=== PATIENT | male | born 1970 | race Caucasian/White ===

== ENCOUNTER 2020-11-02 09:36 | Observation (INO) | payer BC, OTHER ==
--- NOTE | 2020-11-02 09:42 | ERPHSYRPT ---
- History of Present Illness Time Seen by Provider: 11/02/20 09:42 Source: patient Exam Limitations: no limitations Physician History: This is a 50-year-old overweight white male with a history of hypertension and presents with a left groin abscess that has increased in size over the last 3 to 4 weeks despite Keflex and doxycycline orally. In addition, 2 days ago patient received an injection intramuscularly of Rocephin 2 g. Patient's primary care physician is Dr. Scales. Culture was obtained of this fluid and to this date there is been no growth present. Patient has an appointment to see general surgeon's Dr. Mark/Machelle on 11/06/2020. However, the site has increased in pain and size. Timing/Duration: week(s) Quality: painful Severity: moderate Location: other (Left groin) Possible Causes: no cause identified Associated Symptoms: change in skin texture, swelling/mass/lumps Allergies/Adverse Reactions: iodine Allergy (Verified 11/02/20 09:40) Home Medications: Lisinopril 1 tab PO DAILY 11/02/20 [History] Travel Risk - International Travel Have you traveled outside of the country in past 3 weeks: No - Coronavirus Screening Are you exhibiting any of the following symptoms?: No Close contact with a COVID-19 positive Pt in past 14-21 Days: No - Vaccine Status Have you recieved a Covid-19 vaccination: No - Review of Systems Constitutional: No Symptoms Eyes: No Symptoms Ears, Nose, & Throat: No Symptoms Respiratory: No Symptoms Cardiac: No Symptoms Abdominal/Gastrointestinal: No Symptoms Genitourinary Symptoms: No Symptoms Musculoskeletal: No Symptoms Skin: Cellulitis, Other (Abscess left groin) Neurological: No Symptoms Psychological: No Symptoms Endocrine: No Symptoms Hematologic/Lymphatic: No Symptoms Immunological/Allergic: No Symptoms All Other Systems: Reviewed and Negative - Past Medical History Pertinent Past Medical History: Yes Neurological History: No Pertinent History ENT History: No Pertinent History Cardiac History: Hypertension Respiratory History: No Pertinent History Endocrine Medical History: No Pertinent History Musculoskeletal History: No Pertinent History GI Medical History: No Pertinent History History: No Pertinent History Psycho-Social History: No Pertinent History Male Reproductive Disorders: No Pertinent History - Past Surgical History Past Surgical History: Yes - Nursing Vital Signs Nursing Vital Signs: Initial Vital Signs Temperature 97.7 F 11/02/20 09:41 Pulse Rate 104 H 11/02/20 09:41 Respiratory Rate 18 11/02/20 09:41 Blood Pressure 135/86 11/02/20 09:41 O2 Sat by Pulse Oximetry 95 11/02/20 09:41 Pain Scale Pain Intensity 10 - Physical Exam General Appearance: no apparent distress, alert, anxiety, obese Eye Exam: PERRL/EOMI, eyes nml inspection Ears, Nose, Throat Exam: normal ENT inspection, moist mucous membranes Neck Exam: normal inspection, non-tender, supple, full range of motion Respiratory Exam: normal breath sounds, lungs clear, airway intact, No chest tenderness, No respiratory distress Cardiovascular Exam: regular rate/rhythm, normal heart sounds, normal peripheral pulses Gastrointestinal/Abdomen Exam: soft, normal bowel sounds, No tenderness Male Genitalia Exam: other (Left inguinal/inner thigh abscess with mild periabscess cellulitis) Rectal Exam: not done Back Exam: normal inspection, normal range of motion, No CVA tenderness, No vertebral tenderness Extremity Exam: normal inspection, normal range of motion, pelvis stable Neurologic Exam: alert, oriented x 3, cooperative, brick or block maker II-XII nml as tested, normal mood/affect, nml station & gait, sensation nml Skin Exam: normal color, warm, dry, other (Abscess with cellulitis as above) Lymphatic Exam: No adenopathy SpO2 Interpretation: normal O2 Delivery: Room Air Procedures - Incision and Drainage Time of Procedure: 10:27 Site: Left groin Anesthesia: 1% Lidocaine cc's of anesthesia: 3 Blade Size: 15 I & D Procedure: hibiclens prep, culture obtained Results: large amount pus - Course Nursing assessment & vital signs reviewed: Yes Ordered Tests: Active Orders 24 hr Category Date Time Status IV Insertion STAT Care 11/02/20 09:57 Active BLOOD CULTURE Stat Lab 11/02/20 10:10 Received CBC W DIFF Stat Lab 11/02/20 10:05 Completed CMP Stat Lab 11/02/20 10:05 Completed CULTURE,WOUND Stat Lab 11/02/20 09:58 Ordered Lactic Acid Stat Lab 11/02/20 09:57 Received Medication Summary Generic Name Dose Route Start Last Admin Trade Name Freq PRN Reason Stop Dose Admin Sodium Chloride 1,000 mls @ 999 mls/hr 11/02/20 09:57 11/02/20 10:08 Sodium Chloride 0.9% 1000 Ml IV 11/02/20 10:57 999 mls/hr .Q1H1M STA Administration Piperacillin Sod/Tazobactam 100 mls @ 200 mls/hr 11/02/20 10:29 Sod 3.375 gm/ Sodium Chloride IV 11/02/20 10:58 STAT ONE Discontinued Medications Generic Name Dose Route Start Last Admin Trade Name Maurisioq PRN Reason Stop Dose Admin Hydromorphone HCl Confirm 11/02/20 10:24 Hydromorphone 1 Mg/Ml Injection Administered 11/02/20 10:25 Dose 1 mg .ROUTE .STK-MED ONE Hydromorphone HCl 1 mg 11/02/20 10:37 Hydromorphone 1 Mg/Ml Injection IV 11/02/20 10:38 STAT ONE Sodium Chloride Confirm 11/02/20 10:07 Sodium Chloride 0.9% 1000 Ml Administered 11/02/20 10:08 Dose 1,000 mls @ ud .ROUTE .STK-MED ONE Lidocaine HCl Confirm 11/02/20 09:58 Xylocaine 1% Hcl 20 Ml Mdv Administered 11/02/20 09:59 Dose 5 ml .ROUTE .STK-MED ONE Ondansetron HCl Confirm 11/02/20 10:24 Zofran 4 Mg/2 Ml Vial Administered 11/02/20 10:25 Dose 4 mg .ROUTE .STK-MED ONE Ondansetron HCl 4 mg 11/02/20 10:37 Zofran 4 Mg/2 Ml Vial IV 11/02/20 10:38 STAT ONE Piperacillin Sod/Tazobactam Sod Confirm 11/02/20 10:33 Zosyn 3.375 Gm Vial Administered 11/02/20 10:34 Dose 3.375 gm IV .STK-MED ONE Lab/Rad Data: Laboratory Result Diagrams 11/02/20 10:05 11/02/20 10:05 Laboratory Results 11/02/20 11/02/20 Range/Units 10:05 10:05 WBC 16.1 H (4.0-10.5) K/mm3 RBC 4.86 (4.1-5.6) M/mm3 Hgb 14.8 (12.5-18.0) gm/dl Hct 45.6 (42-50) % MCV 93.8 (78-100) fl MCH 30.5 (26-32) pg MCHC 32.5 (32-36) g/dl RDW 12.7 (11.5-14.0) % Plt Count 379 (150-450) K/mm3 MPV 9.5 (7.5-11.0) fl Gran % 78.1 H (36.0-66.0) % Eos # (Auto) 0.18 (0-0.5) Absolute Lymphs (auto) 2.06 (1.0-4.6) Absolute Monos (auto) 1.26 (0.0-1.3) Lymphocytes % 12.8 L (24.0-44.0) % Monocytes % 7.8 (0.0-12.0) % Eosinophils % 1.1 (0.00-5.0) % Basophils % 0.2 (0.0-0.4) % Absolute Granulocytes 12.61 H (1.4-6.9) Basophils # 0.03 (0-0.4) Sodium 132 L (137-145) mmol/L Potassium 3.9 (3.5-5.1) mmol/L Chloride 95 L (98-107) mmol/L Carbon Dioxide 24 (22-30) mmol/L Anion Gap 16.4 H (5-15) MEQ/L BUN 13 (9-20) mg/dL Creatinine 0.71 (0.66-1.25) mg/dL Estimated GFR > 60.0 ML/MIN Glucose 355 H (74-106) mg/dL Calcium 9.1 (8.4-10.2) mg/dL Total Bilirubin 0.70 (0.2-1.3) mg/dL AST 35 (17-59) U/L ALT 43 (0-50) U/L Alkaline Phosphatase 94 (38-126) U/L Serum Total Protein 7.5 (6.3-8.2) g/dL Albumin 4.0 (3.5-5.0) g/dL - Progress Progress: improved, pain not gone completely, re-examined Progress Note: 11/02/20 10:39 Medical decision making: This patient has had an enlarging, tender left groin abscess despite intramuscular and oral antibiotics over the last 3 to 4 weeks. The patient has an appointment to see a general surgeon (Jas villarreal) on 11/06/2020. However her symptoms are worsening despite antibiotic treatment as an outpatient. The patient has leukocytosis as well as elevated anion gap. He had a significant amount of pus exuded from the left groin abscess site when we did an incision and drainage. I believe the patient would be best served by placing him in observation and provide him with intravenous antibiotics as well as obtaining a general surgical consultation with Dr. Jas villarreal. I spoke with Dr. Bradley and he agrees. We will place him in observation, check a hemoglobin A1c, provide him with Accu-Cheks as well as low-dose regular insulin injections and Zosyn intravenous antibiotics. Discussed with : Rajan Counseled pt/family regarding: lab results, diagnosis - Departure Departure Disposition: Observation Clinical Impression: Abscess of left groin, Leukocytosis, Hyperglycemia Condition: Stable Critical Care Time: No
[2020-11-02] MEDS ORDERED: Sodium Chloride 0.9% 1000 ML 1,000 ML IV STA (09:57)
[2020-11-02] MEDS ORDERED: XYLOCAINE 1% HCL 20 ML MDV ONE (09:58)
[2020-11-02] MEDS ORDERED: Sodium Chloride 0.9% 1000 ML 1,000 ML ONE (10:07)
[2020-11-02 10:08] LABS: Absolute Neutrophil Ct (ANC) 12.61 (1.4-6.9); BASOPHIL % 0.2 % (0.0-0.4); Basophil (Absolute #) 0.03 (0-0.4); Eosinophil % 1.1 % (0.00-5.0); Eosinophil (Absolute #) 0.18 (0-0.5); Hematocrit 45.6 % (42-50); Hemoglobin 14.8 gm/dl (12.5-18.0); Lymphocyte (Absolute #) 2.06 (1.0-4.6); Lymphocytes % 12.8 % (24.0-44.0); Mean Cell Volume 93.8 fl (78-100); Mean Corpuscular Hemoglobin 30.5 pg (26-32); Mean Corpuscular Hgb Concent. 32.5 g/dl (32-36); Mean Platelet Volume 9.5 fl (7.5-11.0); Monocyte (Absolute #) 1.26 (0.0-1.3); Monocytes % 7.8 % (0.0-12.0); Neutrophil % 78.1 % (36.0-66.0); Platelet Count 379 K/mm3 (150-450); Red Blood Count 4.86 M/mm3 (4.1-5.6); Red Cell Distribution Width 12.7 % (11.5-14.0); White Blood Count 16.1 K/mm3 (4.0-10.5)
[2020-11-02 10:18] LABS: ALKALINE PHOSPHATASE 94 U/L (38-126); ANION GAP 16.4 MEQ/L (5-15); BLOOD UREA NITROGEN 13 mg/dL (9-20); CHLORIDE 95 mmol/L (98-107); Calcium 9.1 mg/dL (8.4-10.2); Carbon Dioxide 24 mmol/L (22-30); Creatinine 1 0.71 mg/dL (0.66-1.25); EST GLOMERULAR FILTRATION RATE > 60.0 ML/MIN; Glucose 355 mg/dL (74-106); Potassium 3.9 mmol/L (3.5-5.1); SGOT/AST 35 U/L (17-59); SGPT/ALT 43 U/L (0-50); SODIUM 132 mmol/L (137-145); Total Protein 7.5 g/dL (6.3-8.2)
[2020-11-02] MEDS ORDERED: Hydromorphone 1 mg/ml Injection ONE (10:24)
[2020-11-02] MEDS ORDERED: Zofran 4 MG/2 ML VIAL ONE (10:24)
[2020-11-02] MEDS ORDERED: Zosyn 3.375 GM Vial 3.375 GM in Sodium Chloride 100ML MINI-BAG PLUS 100 ML IV ONE (10:29)
[2020-11-02] MEDS ORDERED: Zosyn 3.375 GM Vial IV ONE (10:33)
[2020-11-02] MEDS ORDERED: Zofran 4 MG/2 ML VIAL IV ONE (10:37)
[2020-11-02] MEDS ORDERED: Hydromorphone 1 mg/ml Injection IV ONE (10:37)
[2020-11-02 11:31] LABS: INFLUENZA A NEGATIVE (NEGATIVE); INFLUENZA B NEGATIVE (NEGATIVE); RESPIRATORY SYNCTIAL VIRUS NEGATIVE (Negative)
[2020-11-02] MEDS ORDERED: TYLENOL 325 MG PO PRN (13:41)
[2020-11-02] MEDS ORDERED: Zofran 4 MG/2 ML VIAL IV PRN (13:41)
[2020-11-02] MEDS ORDERED: HUMULIN R SQ PRN (13:41)
[2020-11-02] MEDS: Sodium Chloride 0.9% 1000 ML 1,000 ML IV SCH ×2 (13:51→19:31)
[2020-11-02] MEDS ORDERED: Hydromorphone 1 mg/ml Injection IV PRN (13:55)
[2020-11-02] MEDS ORDERED: Lactated Ringers 1,000 ML IV SCH (15:30)
[2020-11-02] MEDS ORDERED: SUBLIMAZE 250 MCG/5 ML ONE (15:52)
[2020-11-02] MEDS ORDERED: Versed 2 MG/2 ML Injection ONE (15:52)
[2020-11-02] MEDS ORDERED: Quelicin Fliptop 200 MG/10 ML ONE (15:52)
[2020-11-02] MEDS ORDERED: DIPRIVAN 200 MG/20 ML IV ONE (15:52)
[2020-11-02] MEDS ORDERED: Xylocaine-Mpf 2% 5 Ml Vial ONE (15:57)
[2020-11-02] MEDS ORDERED: Proair Hfa MDI IH ONE (16:10)
[2020-11-02] MEDS ORDERED: MORPHINE SULFATE 10 MG/ML ONE (16:14)
[2020-11-02] MEDS ORDERED: SUBLIMAZE 100 MCG/2 ML ONE (16:28)
[2020-11-02] MEDS ORDERED: HUMALOG SQ PRN (18:46)
[2020-11-02] MEDS: Zosyn 3.375 GM Vial 3.375 GM in Sodium Chloride 100ML MINI-BAG PLUS 100 ML IV SCH (18:52)
[2020-11-02] MEDS: Glucophage 500 MG PO SCH (19:32)
[2020-11-02] MEDS: Januvia 50 MG PO SCH (19:32)
[2020-11-02] MEDS: NORCO 5/325 MG PO PRN (20:18)
[2020-11-03] MEDS: Zosyn 3.375 GM Vial 3.375 GM in Sodium Chloride 100ML MINI-BAG PLUS 100 ML IV SCH ×4 (00:15→17:50)
[2020-11-03] MEDS: NORCO 5/325 MG PO PRN ×2 (04:02→08:41)
[2020-11-03 05:20] LABS: Absolute Neutrophil Ct (ANC) 10.21 (1.4-6.9); BASOPHIL % 0.1 % (0.0-0.4); Basophil (Absolute #) 0.02 (0-0.4); Eosinophil % 3.2 % (0.00-5.0); Eosinophil (Absolute #) 0.47 (0-0.5); Hematocrit 43.1 % (42-50); Hemoglobin 13.7 gm/dl (12.5-18.0); Lymphocyte (Absolute #) 3.03 (1.0-4.6); Lymphocytes % 20.7 % (24.0-44.0); Mean Corpuscular Hemoglobin 30.5 pg (26-32); Mean Corpuscular Hgb Concent. 31.8 g/dl (32-36); Mean Platelet Volume 9.7 fl (7.5-11.0); Monocyte (Absolute #) 0.91 (0.0-1.3); Monocytes % 6.2 % (0.0-12.0); Neutrophil % 69.8 % (36.0-66.0); Platelet Count 364 K/mm3 (150-450); Red Blood Count 4.49 M/mm3 (4.1-5.6); White Blood Count 14.6 K/mm3 (4.0-10.5)
[2020-11-03 06:07] LABS: ALBUMIN 3.5 g/dL (3.5-5.0); ALKALINE PHOSPHATASE 77 U/L (38-126); ANION GAP 14.4 MEQ/L (5-15); BLOOD UREA NITROGEN 16 mg/dL (9-20); CHLORIDE 98 mmol/L (98-107); Calcium 8.5 mg/dL (8.4-10.2); Carbon Dioxide 26 mmol/L (22-30); Creatinine 1 0.71 mg/dL (0.66-1.25); EST GLOMERULAR FILTRATION RATE > 60.0 ML/MIN; Glucose 175 mg/dL (74-106); Potassium 3.7 mmol/L (3.5-5.1); SGOT/AST 42 U/L (17-59); SGPT/ALT 36 U/L (0-50); SODIUM 134 mmol/L (137-145); Total Protein 6.6 g/dL (6.3-8.2)
--- NOTE | 2020-11-03 08:05 | OP ---
SURGERY DATE/TIME: 11/02/2020 1553 PREOPERATIVE DIAGNOSIS: Left groin abscess. POSTOPERATIVE DIAGNOSIS: Left groin abscess. PROCEDURE: Left groin I&D. SURGEON: Shen Mark M.D. ANESTHESIA: General. COMPLICATIONS: None. CONDITION: Stable. INDICATION: A patient with symptomatic abscess that is somewhat draining spontaneously. It appears almost necrotic at the bedside. DESCRIPTION OF PROCEDURE: He is taken to surgery. General anesthetic. Routine prep and drape. The prep helped a lot. It did express some purulence and under the OR lights the skin was actually just necrotic at the spontaneous draining site. This was opened farther about 1 inch. Culture obtained. Additional 300 cc of purulence. It was fiercely irrigated. It was suctioned, irrigated and two drains were placed through one incision. They were secured with 0 PDS. The patient tolerated the procedure satisfactorily.
--- NOTE | 2020-11-03 08:25 | CONS ---
CONSULT DATE: 11/02/2020 REASON FOR CONSULT: Recurrent infection. HISTORY: The patient has had this for three weeks. Initially the first week went bad and the last two weeks have been bad. He did get an appointment scheduled in the office for Friday but he presents today acutely. He did have a Coke in the emergency room. He is seen and examined. He has a necrotic left groin. There are areas of gangrenous material. He needs evaluated in the operating room and debrided. This is a quite serious problem and he seems to not totally understand that to date. IMPRESSION: Necrotizing infection left groin. PLAN: Operating room.
[2020-11-03] MEDS ORDERED: LISINOPRIL PO SCH (10:00)
[2020-11-03] MEDS: Januvia 50 MG PO SCH (10:52)
[2020-11-03] MEDS: Glucophage 500 MG PO SCH (10:52)
[2020-11-03] MEDS: Zestril 20 MG PO SCH (10:52)
[2020-11-03] MEDS: Amaryl 2 MG PO SCH (10:52)
[2020-11-03] MEDS: Sodium Chloride 0.9% 1000 ML 1,000 ML IV SCH (22:30)
[2020-11-04] MEDS: Zosyn 3.375 GM Vial 3.375 GM in Sodium Chloride 100ML MINI-BAG PLUS 100 ML IV SCH ×3 (00:15→11:37)
[2020-11-04] MEDS: NORCO 5/325 MG PO PRN ×2 (03:57→15:58)
[2020-11-04 08:50] VITALS: O2SAT 94
[2020-11-04] MEDS: Januvia 50 MG PO SCH (10:22)
[2020-11-04] MEDS: Glucophage 500 MG PO SCH (10:23)
[2020-11-04] MEDS: Amaryl 2 MG PO SCH (10:23)
[2020-11-04] MEDS: Zestril 20 MG PO SCH (10:23)
[2020-11-04 13:56] VITALS: BP 115/55; PULSE 94
--- NOTE | 2020-11-04 13:57 | PCM.DCORD ---
- Discharge Disposition: Home, Self-Care Condition: Stable Prescriptions: New Glimepiride 2 mg [Amaryl 2 MG] 2 mg PO DAILY #30 tablet Metformin HCl 500 mg [Glucophage 500 MG] 500 mg PO DAILY #30 tablet Levofloxacin [Levaquin] 750 mg PO DAILY #7 tablet Saccharomyces Boulardii [Florastor] 250 mg PO BID #20 capsule Continue Lisinopril 40 tab PO DAILY Instructions: Abscess Incision and Drainage (DC), Blood Glucose Monitoring, Diabetic Meal Planning , Diabetes and Diet, How to Prevent High Blood Sugar Emergencies in Diabetes Additional Instructions: TEST YOUR BLOOD SUGAR TWICE DAILY. KEEP A DIARY OF YOUR MEALS AND YOUR SUGAR LEVELS. TRY TO LIMIT CARBOHYDRATES, INCREASE LEAN PROTEIN IN DIET AND DECREASE FRIED FOODS. CALL AND SCHEDULE A FOLLOW UP APPOINTMENT WITH DR CHILDRESS ON FRIDAY. [phone] GLUCOMETER, LANCETS AND STRIPS WERE CALLED IN TO [facility] Follow up with: DOCTOR,NO FAMILY [Primary Care Provider] -
[2020-11-04] MEDS ORDERED: Levofloxacin 500MG/100ML D5W 500 MG/100 ML BAG IV SCH (14:15)
--- NOTE | 2020-11-04 16:54 | PCM.DS ---
Discharge Summary Date of Admission: 11/02/20 13:22 Admitting Physician: HOWIE BERGERON Consults: Consults on Case 11/02/20 13:41 Consult Surgery ROUTINE 11/03/20 09:54 Diet Consult [Nutritional Consult] ROUTINE Primary Care Provider: NO FAMILY DOCTOR Allergies Allergies iodine Allergy (Verified 11/02/20 09:40) Hospital Summary - Hospital Course Hospital Course: Patient is 50 yr old gentleman who was admitted through ER for left groin mass/abcess. He had been seeing Dr Scales in [place] treated with Doxycycline ,Keflex, series of Rocephin IM (? 2shots,2 days) without improvement. I & D in ER with copious purulent discharge. Culture grew Strep Agalactiae. Dr Shen Mark took patient to surgery for further debridement. - Vitals & Intake/Output Vital Signs: Vital Signs Temperature 98.6 F 11/04/20 12:00 Pulse Rate 94 H 11/04/20 12:00 Respiratory Rate 16 11/04/20 12:00 Blood Pressure 115/55 11/04/20 12:00 O2 Sat by Pulse Oximetry 94 L 11/04/20 12:00 Intake & Output: Intake & Output 11/02/20 11/03/20 11/04/20 11/05/20 11:59 11:59 11:59 11:59 Intake Total 2124 3569 Output Total 1300 2375 Balance 824 1194 Weight 120.656 kg 122.8 kg 122.8 kg - Lab Result Diagrams: 11/03/20 04:30 11/03/20 04:30 Lab Results-Last 24 Hrs: Lab Results-Last 24 Hours 11/03/20 11/04/20 11/04/20 Range/Units 20:24 07:25 11:45 POC Glucometer 166 H 120 H 200 H (74 to 106) mg/dL 11/04/20 Range/Units 16:08 POC Glucometer 194 H (74 to 106) mg/dL Micro Results-Entire Visit: Microbiology 11/02/20 16:45 Abscess Culture - Final Groin - Left Streptococcus Agalactiae 11/02/20 10:30 Wound Culture - Final Groin - Left Streptococcus Agalactiae 11/02/20 10:30 Anaerobic Culture - Final Groin - Left Not Reportable Anaerobic Culture Result 1 - Final Not Reportable Anaerobic Culture Result 3 - Final Not Reportable Anaerobic Culture Result 4 - Final Not Reportable Anaerobic Bacterial Sensitivity - Final Not Reportable 11/02/20 10:10 Blood Culture - Preliminary Blood NO GROWTH TO DATE 11/02/20 10:05 Blood Culture - Preliminary Blood NO GROWTH TO DATE Accuchecks Date 11/04/20 Date 11/04/20 Date 11/03/20 Time 11:30 Time 07:34 Time 22:00 - Procedures and Test Procedures and Tests throughout Hospitalization: Therapy Orders & Screens 11/02/20 16:05 OT Screen per Nursing Assess ONCE Comment: Protocol Order Physician Instructions: Greater than 3 points order OT Admission Screening Reason For Exam: Triggered on Admission Diagnosis: left groin abscess; leukocytosis; hyperglycemia Open Wound/Cellutlitis/Pressure Ulcers: Yes Acute Fx/ORIF/Change in wt bearing status: No Severe MUSCULOSKELETAL pain: No ADL Dysfunction: No Acute CVA w/Hemiparesis/Hemiplegia: No Decreased Functional Mobility/Strength: No Sprain/Strain: No Acute Post-op Mobility Dysfunction: No Total Points: 5 PT Screen per Nursing Assess ONCE Comment: Protocol Order Physician Instructions: Greater than 3 points order PT Admission Screenin Reason For Exam: Triggered on Admission Diagnosis: left groin abscess; leukocytosis; hyperglycemia Open Wound/Cellutlitis/Pressure Ulcers: Yes Acute Fx/ORIF/Change in wt bearing status: No Severe MUSCULOSKELETAL pain: No ADL Dysfunction: No Acute CVA w/Hemiparesis/Hemiplegia: No Decreased Functional Mobility/Strength: No Sprain/Strain: No Acute Post-op Mobility Dysfunction: No Total Points: 5 Smoking Cessation Education ONCE Comment: Diagnosis: left groin abscess; leukocytosis; hyperglycemia Smoking Status: Current every day smoker How long have you smoked: ~40 years Have you smoked in the past 12 months: Yes Approximately how many cigarettes per day: 20 Do you dip or chew tobacco: No 11/02/20 18:13 Oxygen Nasal Cannula 3 lpm Comment: Diagnosis: left groin abscess; leukocytosis; hyperglycemia Discharge Exam Wound Assessment: Skin/Wound Assessment Wound/Incision Assessment Start: 11/02/20 16:05 Text: Status: Active Freq: Q6H Protocol: Document 11/04/20 14:00 (Rec: 11/04/20 15:26 [id number]) Wound/Incision Assessment Left Upper Thigh Wound Assessment Shift Assessment Wound Type Incision Dressing Status Changed Drainage Amount Moderate Drainage Description Serous Drainage Odor None/Absent General Appearance Bleeding Surrounding Tissue [place] Left Upper Thigh Drain Type [place] Drainage Description Serous Odor None/Absent - Discharge Disposition: Home, Self-Care Condition: Stable Prescriptions: New Glimepiride 2 mg [Amaryl 2 MG] 2 mg PO DAILY #30 tablet Metformin HCl 500 mg [Glucophage 500 MG] 500 mg PO DAILY #30 tablet Levofloxacin [Levaquin] 750 mg PO DAILY #7 tablet Saccharomyces Boulardii [Florastor] 250 mg PO BID #20 capsule Continue Lisinopril 40 tab PO DAILY Instructions: Abscess Incision and Drainage (DC), Blood Glucose Monitoring, Diabetic Meal Planning , Diabetes and Diet, How to Prevent High Blood Sugar Emergencies in Diabetes Additional Instructions: TEST YOUR BLOOD SUGAR TWICE DAILY. KEEP A DIARY OF YOUR MEALS AND YOUR SUGAR LEVELS. TRY TO LIMIT CARBOHYDRATES, INCREASE LEAN PROTEIN IN DIET AND DECREASE FRIED FOODS. CALL AND SCHEDULE A FOLLOW UP APPOINTMENT WITH DR MARK ON FRIDAY. [phone] GLUCOMETER, LANCETS AND STRIPS WERE CALLED IN TO [facility] Follow up with: DOCTOR,NO FAMILY [Primary Care Provider] -
[2020-11-04] MEDS ORDERED: Adacel Vial IM ONE (17:01)
== END 2020-11-04 18:10 | disposition home or self-care (01) ==
LOC: ED 09:36 → MED SURG 13:22
PROVIDERS: ADMIT Family Medicine; ATTEND Family Medicine
DX: L02.214 Cutaneous abscess of groin (principal); L03.314 Cellulitis of groin; Z79.899 Other long term (current) drug therapy; I10 Essential (primary) hypertension; E11.9 Type 2 diabetes mellitus without complications; Z79.4 Long term (current) use of insulin; D72.829 Elevated white blood cell count, unspecified; Z86.79 Personal history of other diseases of the circulatory system
CPT/HCPCS: 0241U; 10060; 36000; 36415; 80053; 82947; 83036; 83605; 84134; 85025; 87040; 87070; 87075; 87077; 87186; 94760; 96360; 96365; 96374; 96375; 99285; G0378; 90715; 99140; J0330; J1170; J1817; J1956; J2250; J2270; J2405; J2704; J3010; A9270-GY